=== PATIENT | male | born 1960 | race Caucasian/White ===

== ENCOUNTER → 2018-03-31 14:33 | Outpatient (CLI) | payer OTHER, SELFPAY ==
[2018-03-31 15:53] LABS: Anion Gap 8 (5-15); BUN 13 mg/dL (7-18); BUN/Creat Ratio 13.9 RATIO (10-20); Calcium,Total 9.3 mg/dL (8.5-10.1); Chloride 103 mmol/L (98-107); Cholesterol 244 mg/dL (200); Creatinine, Serum 0.94 mg/dL (0.70-1.30); EST Glomerular Filtration Rate 88 mL/min (>60); Est Glom Filt Rate - Afr Amer 106 mL/min (>60); Glucose 81 mg/dL (74-106); High Density Lipoprotein 83 mg/dL; PSA,Total - Annual Screen 0.97 ng/mL (0.00-4.00); Potassium 3.5 mmol/L (3.5-5.1); Sodium Level 140 mmol/L (136-145); Triglycerides 65 mg/dL; Very Low Density Lipoprotein 13 mg/dL (5-40)
[2018-03-31 15:57] LABS: Vitamin D,25 Hydroxy 29.5 ng/mL (29.95-100.01)
== END ==
PROVIDERS: Family Provider Family Medicine; PCP Family Medicine; Visit Provider Family Medicine
DX: Z00.00 Encounter for general adult medical examination without abnormal findings (principal)
CPT/HCPCS: 36415; 80048; 80061; 82306; 84153; G0103

== ENCOUNTER 2022-03-05 16:43 | Emergency (ER) | payer BC, SELFPAY ==
[2022-03-05 16:44] VITALS: BP 136/96; PULSE 73; RESP 15; TEMP 36.7; O2SAT 97; BMI 25.0
--- NOTE | 2022-03-05 17:17 | EX.ED.GENINJ ---
HPI History of Present Illness Chief Complaint: Laceration Informant: patient, spouse/S.O. and family Narrative Narrative: 61-year-old male was working on a crossbow when he sustained a laceration from the trigger to his left thumb. He notes 2 lacerations to his dorsum of the left thumb. Denies any other injuries. Unknown last tetanus. Tetanus Immunization: Unknown PFSH PFSH Home Medications cephalexin 500 mg capsule 500 mg PO TID 7 days #21 caps 03/05/22 [Rx Last Taken Unknown] Allergy/AdvReac Type Severity Reaction Status Date / Time No Known Allergies Allergy Verified 03/05/22 16:44 Social History (Updated 03/05/22 @ 17:[address] Dano Lay, DO) Smoking Status: Never smoker substance use type: does not use ROS ROS ED Constitutional Constitutional ED: Denies chills or weight loss Eyes Eyes: Denies change in vision or diplopia ENT ENT ED: Denies ear pain, rhinorrhea or sore throat Cardiovascular Cardiovascular: Denies chest pain, orthopnea, palpitations or racing heartbeat Respiratory/Chest Respiratory/Chest: Denies cough, dyspnea or orthopnea Gastrointestinal Gastrointestinal: Denies abdominal pain, diarrhea, nausea or vomiting Genitourinary Genitourinary ED: Denies dysuria, hematuria or urinary frequency Musculoskeletal Musculoskeletal: Denies arthralgias or myalgias Integumentary Reports other Details: See HPI ; Denies abscess or rash Neurologic Neurologic: Denies headache(s) or weakness Psychiatric Psychiatric: Denies anxiety, depression, suicidal ideation or suicidal thoughts Endocrine Endocrinology: Denies polydipsia, polyphagia or polyuria Allergic/Immunologic Allergic/Immunologic ED: Denies mouth swelling, tongue swelling or urticaria EXAM Physical Exam Const Vital Signs: 03/05/22 16:44 Temperature 98.0 F Temperature Source Temporal Pulse Rate 73 Respiratory Rate 15 Blood Pressure 136/96 H Blood Pressure Mean 109 Pulse Ox 97 Oxygen Delivery Method Room Air Positive well nourished and well developed General Appearance ED: well developed HEENT Reports normocephalic, head/scalp atraumatic and moist mucous membranes Eyes PERRL and EOMs intact bilaterally Neck no lymphadenopathy, supple and no JVD Resp normal respiratory effort and clear to auscultation bilaterally Cardio regular rate, regular rhythm and no murmurs GI normal to inspection, nondistended, normoactive bowel sounds and non-tender Palpation: soft Back/Spine no CVA tenderness and normal ROM Extremity Extremity Narrative: There are 2 lacerations to the dorsum of the left thumb. First over the PIP joint is a 3 to 4 cm curvilinear laceration that is full-thickness. It its wound edges are well approximated. The second laceration is proximal near the MCP joint. There is visualization of the tendon but no obvious tendon injury when I take it through its range of motion. Tendon strength appears normal. This laceration measures approximately 2 cm in a elliptical fashion. All bleeding controlled General Extremety ED: Negative for edema General Extremity: Negative for edema Neuro oriented x3 and CN's II-XII intact bilaterally Sensorium / Orientation: alert Motor Exam: strength 5/5 throughout Psych mental status grossly normal Mood & Affect: Negative for depressed or tearful Skin no rashes or lesions noted and no wounds MDM MDM MDM Narrative Medical decision making narrative: The wounds were locally anesthetized using 1% lidocaine washed with Shur-Clens explored and irrigated with sterile saline and then closed using a total of 6 simple interrupted 4-0 Ethilon sutures. He is given his first dose of Keflex here and a prescription for same because of the visualization of the tendon. The patient will follow-up with primary care in 10 to days for suture removal. His tetanus was updated. Discharge Plan Triage Chief Complaint: Laceration ED Provider: Dano Lay Dx/Rx/DC Orders Clinical Impression: Laceration of left thumb Instructions: ED Laceration, Hand: All Closures Prescriptions: New cephalexin 500 mg capsule 500 mg PO TID 7 Days Qty: 21 0RF Primary Care Provider: Jelani Doan Referrals: Jelani Doan MD [Primary Care Provider] - 10 Day for suture removal Disposition Disposition: Home, Self Care
[2022-03-05] MEDS: Lidocaine 1% (20 ml mdv) 20 ML Vial INFILT (17:18)
[2022-03-05] MEDS: Diphth,Pertuss(Acell),Tet Vac 0.5 ML Vial IM (17:18)
[2022-03-05] MEDS: Cephalexin 250 MG Capsule 500 MG PO (17:27)
== END 2022-03-05 17:37 | disposition home or self-care (01) ==
LOC: ED 17:36
PROVIDERS: Emergency Provider Emergency Medicine; PCP Family Medicine; Visit Provider Emergency Medicine
DX: S61.012A Laceration without foreign body of left thumb without damage to nail, initial encounter (principal); W26.8XXA Contact with other sharp object(s), not elsewhere classified, initial encounter
CPT/HCPCS: 12002; 90715; 99284

== ENCOUNTER → 2022-03-30 | Outpatient (CLI) | payer BC, SELFPAY ==
[2022-03-30 09:58] LABS: Absolute Lymphocyte Count 1.46 X10^3/uL (0.83-4.51); Absolute Neutrophil Count 4.4 X10^3/uL (2.0-7.7); Basophil# 0.02 X10^3/uL; Basophil% 0.3 % (0-1); Eosinophils% 1.5 % (0-5); Hematocrit 48.3 % (40-54); Hemoglobin 16.1 g/dL (13.0-16.5); Lymphocyte # 1.46 X10^3/ul (0.83-4.51); Lymphocyte % 21.7 % (19-41); Mean Corp Hgb Conc 33.3 g/dL (32-36); Mean Corpuscular Hgb 31.4 pg (27.0-32.0); Mean Corpuscular Volume 94.2 fL (80-94); Mean Platelet Vol. 8.8 fl (6.2-12.0); Monocyte# 0.76 X10^3/uL; Monocyte% 11.3 % (0-10); NRBC Flagged by Analyzer 0 % (0-5); Neutrophil # 4.39 X10^3/uL (2.7-7.7); Neutrophil % 65.1 % (47-70); Platelet Count 260 K/mm3 (150-450); RBC Distribution Width CV 13.1 % (11.6-14.6); RBC Distribution Width SD 45.3 fl (35.1-43.9); Red Blood Count 5.13 M/mm3 (4.6-6.2); White Blood Count 6.7 K/mm3 (4.4-11.0)
[2022-03-30 10:39] LABS: Anion Gap 5 (5-15); BUN 19 mg/dL (7-18); BUN/Creat Ratio 20.4 RATIO (10-20); Calcium,Total 9.6 mg/dL (8.5-10.1); Chloride 106 mmol/L (98-107); Cholesterol 309 mg/dL (200); Creatinine, Serum 0.93 mg/dL (0.70-1.30); EST Glomerular Filtration Rate 87 mL/min (>60); Est Glom Filt Rate - Afr Amer 106 mL/min (>60); Glucose 100 mg/dL (74-106); High Density Lipoprotein 82 mg/dL; Potassium 4.4 mmol/L (3.5-5.1); Sodium Level 141 mmol/L (136-145); Triglycerides 52 mg/dL; Troponin-I HS 10 pg/mL (3.0-78.0); Very Low Density Lipoprotein 10 mg/dL (5-40)
== END | disposition home or self-care (01) ==
LOC: MTLAB 09:02
PROVIDERS: PCP Family Medicine; Referring Provider Family Medicine; Visit Provider Family Medicine
DX: R07.9 Chest pain, unspecified (principal)
CPT/HCPCS: 36415; 80048; 80061; 84484; 85025

== ENCOUNTER → 2022-04-10 | Outpatient (CLI) | payer BC, SELFPAY ==
--- NOTE | 2022-04-10 18:43 | STRESSREP ---
Stress Test Report Exercise myocardial perfusion stress test. 61-year-old man with a history of chest pain. Resting EKG demonstrates normal sinus rhythm with a rate of 58 bpm normal intervals are noted resting blood pressure is 116/80 mmHg. J-point elevation is present. The patient exercised according to the regular Pelon protocol for a total duration of 9 minutes and 6 seconds completing 6 seconds into stage IV of the Pelon protocol the maximum heart rate attained was 148 bpm which was 93% of max impacted heart rate the maximum workload was 10.4 metabolic equivalents. At rest there were no ST or T wave changes noted to suggest ischemia and at peak exercise upsloping ST changes were noted with did not meet the criteria for ischemia. No clinical angina was noted the test was terminated due to the target heart rate being achieved. The resting blood pressure was 116/80 with a peak blood pressure 186/80 mmHg which was a good blood pressure response to exercise with a rate-pressure product of 27,156. Myocardial perfusion protocol. 14.1 mCi of technetium 99m sestamibi was injected at rest. The patient exercised according to regular Pelon protocol for total duration of 9 minutes and at peak exercise 44.3 mCi of technetium 99m sestamibi was injected stress images were obtained stress and rest images were reconstructed and compared in the short axis vertical long and horizontal long axis. Gated images were also obtained. Perfusion SPECT analysis: Review of the stress images demonstrate normal uptake of tracer noted in all areas of the myocardium. The resting images similar demonstrate normal uptake of tracer noted in all areas of the myocardium. No areas of reversibility are noted suggest ischemia and no previous infarct is noted. Gated SPECT analysis: The gated ejection fraction is 67%. Conclusion: Normal exercise myocardial perfusion stress test at a high workload. Preserved ejection fraction.
== END | disposition home or self-care (01) ==
PROVIDERS: PCP Family Medicine; Referring Provider Family Medicine; Visit Provider Family Medicine
DX: R07.9 Chest pain, unspecified (principal)
CPT/HCPCS: 78452; 93017; A9500

== ENCOUNTER → 2023-01-04 | Outpatient (CLI) | payer BC, SELFPAY ==
[2023-01-04 10:36] LABS: AST(SGOT) 34 U/L (15-37); Alanine Aminotransfer ALT/SGPT 40 U/L (16-61); Albumin, Serum 3.8 g/dL (3.2-5.0); Alkaline Phosphatase 42 U/L (45-117); Anion Gap 4 (5-15); BUN 15 mg/dL (7-18); BUN/Creat Ratio 17.7 RATIO (10-20); Calcium,Total 9.2 mg/dL (8.5-10.1); Chloride 105 mmol/L (98-107); Creatinine, Serum 0.85 mg/dL (0.70-1.30); EST Glomerular Filtration Rate 97 mL/min (>60); Est Glom Filt Rate - Afr Amer 117 mL/min (>60); Globulin 3.8 g/dL (2.2-4.2); Glucose 96 mg/dL (74-106); PSA,Total - Annual Screen 1.37 ng/mL (0.00-4.00); Potassium 4.3 mmol/L (3.5-5.1); Protein, Total 7.6 g/dL (6.4-8.2); Sodium Level 139 mmol/L (136-145)
== END | disposition home or self-care (01) ==
LOC: MFPLAB 08:19
PROVIDERS: PCP Family Medicine; Visit Provider Family Medicine
DX: Z00.00 Encounter for general adult medical examination without abnormal findings (principal); Z12.5 Encounter for screening for malignant neoplasm of prostate; E78.00 Pure hypercholesterolemia, unspecified
CPT/HCPCS: 36415; 80053; 84153; G0103

== ENCOUNTER → 2023-07-12 | Outpatient (CLI) | payer BC, SELFPAY ==
[2023-07-12 10:31] LABS: ALB/GLOB Ratio 1.3 RATIO (0.9-2.4); AST(SGOT) 26 U/L (15-37); Alanine Aminotransfer ALT/SGPT 37 U/L (16-61); Alkaline Phosphatase 41 U/L (45-117); Anion Gap 5 (5-15); BUN 25 mg/dL (7-18); BUN/Creat Ratio 27.5 RATIO (10-20); Calcium,Total 9.5 mg/dL (8.5-10.1); Chloride 106 mmol/L (98-107); Cholesterol 183 mg/dL (200); Creatinine, Serum 0.91 mg/dL (0.70-1.30); EST Glomerular Filtration Rate 89 mL/min (>60); Est Glom Filt Rate - Afr Amer 108 mL/min (>60); Globulin 3.1 g/dL (2.2-4.2); Glucose 92 mg/dL (74-106); High Density Lipoprotein 72 mg/dL; Potassium 4.5 mmol/L (3.5-5.1); Protein, Total 7.1 g/dL (6.4-8.2); Sodium Level 141 mmol/L (136-145); Triglycerides 47 mg/dL; Very Low Density Lipoprotein 9 mg/dL (5-40)
== END | disposition home or self-care (01) ==
LOC: MFPLAB 08:24
PROVIDERS: PCP Family Medicine; Visit Provider Family Medicine
DX: E78.5 Hyperlipidemia, unspecified (principal)
CPT/HCPCS: 36415; 80053; 80061

== ENCOUNTER → 2024-03-27 | Outpatient (CLI) | payer BC, SELFPAY ==
[2024-03-27 11:42] LABS: ALB/GLOB Ratio 1.1 RATIO (0.9-2.4); AST(SGOT) 23 U/L (15-37); Alanine Aminotransfer ALT/SGPT 35 U/L (16-61); Albumin, Serum 3.9 g/dL (3.2-5.0); Alkaline Phosphatase 43 U/L (45-117); Anion Gap 4 (5-15); BUN 15 mg/dL (7-18); BUN/Creat Ratio 17.3 RATIO (10-20); Calcium,Total 9.5 mg/dL (8.5-10.1); Chloride 107 mmol/L (98-107); Cholesterol 161 mg/dL (200); Creatinine, Serum 0.86 mg/dL (0.70-1.30); EST Glomerular Filtration Rate 94 mL/min (>60); Est Glom Filt Rate - Afr Amer 114 mL/min (>60); Globulin 3.4 g/dL (2.2-4.2); Glucose 99 mg/dL (74-106); High Density Lipoprotein 75 mg/dL; PSA,Total - Annual Screen 1.48 ng/mL (0.00-4.00); Potassium 4.4 mmol/L (3.5-5.1); Protein, Total 7.3 g/dL (6.4-8.2); Sodium Level 140 mmol/L (136-145); Triglycerides 58 mg/dL; Very Low Density Lipoprotein 12 mg/dL (5-40)
== END | disposition home or self-care (01) ==
LOC: MFPLAB 09:17
PROVIDERS: PCP Family Medicine; Visit Provider Family Medicine
DX: Z12.5 Encounter for screening for malignant neoplasm of prostate (principal); E78.5 Hyperlipidemia, unspecified
CPT/HCPCS: 36415; 80053; 80061; 84153; G0103

== ENCOUNTER → 2025-03-22 | Outpatient (CLI) | payer BC, SELFPAY | END | disposition home or self-care (01) | LOC: MFPLAB 14:41 → LABSPEC 14:41 | PROVIDERS: PCP Family Medicine; Visit Provider Family Medicine | DX: L02.212 Cutaneous abscess of back [any part, except buttock and flank] (principal) | CPT/HCPCS: 87070; 87205 ==

== ENCOUNTER 2025-04-11 14:47 | Emergency (ER) | payer BC, SELFPAY ==
[2025-04-11 14:48] VITALS: BP 124/69; PULSE 89; RESP 16; TEMP 36.6; O2SAT 100; BMI 26.7
--- NOTE | 2025-04-11 15:13 | EX.ED.DYSGE1 ---
HPI History of Present Illness Chief Complaint: Rash Detail of Chief Complaint: Rash first noted Saturday. Informant: patient Onset/Context/Timing Onset: Days Context: Sudden Onset Timing: Continuous Quality: Erythematous raised nonpruritic generalized rash Location: Generalized Current Severity: The entire body Worsened by: On known Relieved by: Nothing Associated Symptoms Associated Symptoms: Temperature 100.1 at home. Narrative Narrative: Patient is a 64-year-old male. He had not I&D, stab incision, of a abscess left lower back near the midline. This was performed by Dr. Jelani Doan. Fluid was sent for analysis. Gram stain revealed gram-positive cocci and 2+ white cells. There was no growth. Patient is presently on cephalexin and trimethoprim/sulfamethoxazole. He has not had any joint pain or joint swelling. He has had no exfoliation of skin from the palms of his hand or soles of his feet. He denies headache. He denies swelling of his lips tongue question throat. There is been no change in his voice. He has no difficulty swallowing. He has no respiratory symptoms. He has no GI symptoms. Question of some lightheadedness prior to arrival. The rash has progressively gotten worse. He took 2 Benadryl capsules 1 hour prior to presentation because his doctors stated he should take it based on how the rash looks. He had no itching prior to taking the Benadryl. Prior similar symptoms: No Recent Illness/Hospitalization: Yes [facility] Medical History Abscess of back Hyperlipidemia Home Medications ?Medication ?Instructions ?Recorded ?Last Taken ?Type cephalexin 500 mg capsule 500 mg PO TID 7 days #21 caps 03/05/22 Unknown Rx rosuvastatin 20 mg tablet 20 mg PO QHS 04/11/25 Unknown History Allergy/AdvReac Type Severity Reaction Status Date / Time sulfamethoxazole (From Allergy Intermediate Fever and Verified 04/11/25 17:22 Bactrim) skin rash trimethoprim (From Bactrim) Allergy Intermediate Fever and Verified 04/11/25 17:22 skin rash Social History (Updated 04/11/25 @ 15:[address] Jose De Jesus Arenas MD) household members: spouse Smoking Status: Former smoker substance use type: does not use ROS ROS ED Constitutional Constitutional ED: Reports chills and fever(s); Denies subjective or sweats Eyes Eyes: Denies blurry vision, change in vision or diplopia ENT ENT ED: Reports other Details: Further detailed HPI narrative ; Denies ear pain, rhinorrhea or sore throat Cardiovascular Cardiovascular: Reports chest pain and palpitations Respiratory/Chest Respiratory/Chest: Reports cough, dyspnea and dyspnea on exertion Gastrointestinal Gastrointestinal: Reports abdominal pain; Denies diarrhea or vomiting Genitourinary Genitourinary ED: Denies dysuria, hematuria or urinary frequency Musculoskeletal Musculoskeletal: Denies arthralgias, back pain or myalgias Integumentary Reports rash Neurologic Neurologic: Denies paresthesias or weakness Psychiatric Psychiatric: Denies anxiety or depression Endocrine Endocrinology: Denies cold intolerance or heat intolerance Hematologic/Lymphatic Hematologic/Lymphatic: Reports systems reviewed and no addt'l complaints, except as documented EXAM Physical Exam Const Vital Signs: 04/11/25 14:48 Temperature 98 F Temperature Source Oral Pulse Rate 89 Respiratory Rate 16 Blood Pressure 124/69 H Blood Pressure Mean 87 Pulse Ox 100 Oxygen Delivery Method Room Air Positive well nourished and well developed General Appearance ED: well developed and NAD; Negative for pallor HEENT Reports dry mucous membranes HEENT Narrative: Head is atraumatic and normocephalic. Ears normal. Nares patent. Posterior pharynx is unremarkable. There is no mucosal lesions noted. Mouth ED: Yes dry mucous membranes Mouth: dry mucous membranes Eyes PERRL and EOMs intact bilaterally General Eye ED: Negative for pale conjunctiva or scleral icterus Neck no lymphadenopathy, supple and no JVD Chest Wall Chest Narrative: Patient has blanching slightly raised erythematous rash with areas of confluence he. There is other areas that are macular and specifically distal left and right leg. Otherwise the rash is essentially confluence. Resp normal respiratory effort and clear to auscultation bilaterally Cardio regular rate, regular rhythm, S1 normal heart sound, S2 normal heart sound and no murmurs GI normal to inspection, nondistended, normoactive bowel sounds, non-tender, non-distended and no masses; Negative for hepatosplenomegaly GI Narrative: There is no inguinal lymphadenopathy. Back/Spine Back/Spine Narrative: Band-Aid where the stab incision was made was reviewed. There may be some slight drainage. There is no fluctuance. There is no induration. Extremity Negative for normal to inspection General Extremety ED: Negative for edema or tenderness General Extremity: Negative for edema Neuro oriented x3 and CN's II-XII intact bilaterally Sensorium / Orientation: alert Psych mental status grossly normal Skin No no wounds and skin turgor normal Skin Narrative: Erythematous blanching rash from patient's head to his ankles. General Skin Exam: Negative for jaundice or pallor MDM MDM MDM Narrative Medical decision making narrative: This possibly could represent a reaction to the cephalexin and trimethoprim/sulfamethoxazole the patient is still taking. This could represent a staphylococcal infection since the Gram stain revealed positive cocci. They are not positive organisms in chains or pairs. This would be more likely a strep infection. This possibly could be early presentation for staph scalded skin syndrome. I do not believe this represents early toxic shock syndrome due to gram-positive infection. Since he has no joint swelling or swelling of his extremities I do not believe this to be serum sickness either. Because he reported temperature 100.1 prior to arrival CBC was obtained assess white count differential as well as inflammatory markers. Also to determine if he has eosinophilia which would be more likely a allergic reaction. Will have nurse administer IV Pepcid to see if this helps his rash. This would increase likelihood of this being allergic reaction versus infectious. History & Record Review Additional record(s) reviewed:: Prior labs Lab Data Attestation: I reviewed the patient's lab results. Lab results narrative: Patient is neutropenic. Patient has eosinophilia proximal 11%. H&H is normal. Platelet count is normal. Competence of metabolic panel is remarkable for a creatinine of 1.32. BUN is 16. C-reactive protein is elevated 22.7. ESR was normal. Lactate was normal. Labs: Laboratory Results - last 24 hr 04/11/25 15:30 WBC 3.9 L RBC 4.81 Hgb 14.3 Hct 43.4 MCV 90.2 MCH 29.7 MCHC 32.9 RDW Std Deviation 44.5 H RDW Coeff of Shefali 13.4 Plt Count 198 MPV 8.5 Immature Gran % (Auto) 0.800 Neut % (Auto) 63.1 Lymph % (Auto) 14.2 L [place] % (Auto) 10.8 H Eos % (Auto) 10.8 H Baso % (Auto) 0.3 Absolute Neuts (auto) 2.5 Absolute Lymphs (auto) 0.55 L Nucleated RBC % 0 ESR 9 Sodium 132 L Potassium 4.5 Chloride 95 L Carbon Dioxide 24.5 Anion Gap 12 BUN 16 Creatinine 1.32 H Estim Creat Clear Calc 64.87 Est GFR (MDRD) Non-Af 60 BUN/Creatinine Ratio 11.7 Glucose 103 H Lactic Acid < 1.0 Calcium 9.4 Total Bilirubin 0.25 AST 58 H ALT 63 H Alkaline Phosphatase 47 C-React Prot Ext Range 22.70 H Total Protein 7.3 Albumin 4.3 Globulin 3.0 Albumin/Globulin Ratio 1.4 Radiography Chest X-Ray - ED: Read by ED Physician (Three-view x-ray of the elbow was obtained because of concern of retained distal portion of the Angiocath. There is evidence of the distal portion of the Angiocath in the soft tissue. It is approximately 4 to 5 mm x 1 mm. There is also edema due to infiltration of fluid.) Diagnostic Testing: Clinical Impression(s) from Imaging Studies Elbow X-Ray 04/11/25 15:55 IMPRESSION: 8 x 3 mm radiodensity within the deep antecubital fossa soft tissue and 5 x 1 mm radiodensity within the superficial antecubital fossa soft tissue may reflect retained foreign bodies. Moderate soft tissue edema. Reading Location: [facility] Management Discussion w/another healthcare provider: PCP (Spoke to Dr. Guillen on-call for Dr. Jelani Doan. Plan is discontinue antibiotics. Call the office for follow-up this week.) Discharge Plan Triage Chief Complaint: Rash ED Provider: Jose De Jesus Arenas Dx/Rx/DC Orders Clinical Impression: Adverse reaction to sulfonamide antibiotic, Neutropenia, Allergic eosinophilia, Erythematous rash, Foreign body (FB) in soft tissue Instructions: ED Drug Reaction, Other, ED Foreign Body Soft Tissue Prescriptions: No Action cephalexin 500 mg capsule 500 mg PO TID 7 Days Qty: 21 0RF sulfamethoxazole-trimethoprim 800-160 mg tablet 2 tab PO BID rosuvastatin 20 mg tablet 20 mg PO QHS Primary Care Provider: Jelani Doan Referrals: Jelani Doan MD [Primary Care Provider, Family Practice] - As soon as possible Activity Restrictions/Additional Instructions: 1. Stop taking cephalexin and sulfamethoxazole-trimethoprim. 2. The foreign body was not removed. Since its inert will follow and observe. If there is evidence of infection it will need to be removed at that time. Print Language: Surinamese Disposition Disposition: Home, Self Care
--- NOTE | 2025-04-11 15:36 | ED.RN ---
MARGARETH Navarro requesting charge nurse. Ramon notified Charge nurse if off the floor at this time. Ramon asks this RN if she could help him in room12. Ramon states I was attempting an IV, I had to pull the line because it had infiltrated. When I looked at the catheter, I noticed it was not intact... If you could come look at it, and let me know what you see. RN states I need to take this phone call but I will be there when I am done. RN enters patients room and to assess IV catheter. Rn noticed the catheter is not intact. RN states I will step out of the room and talk with Dr. Arenas. Dr. Arenas notified of situation as explained above. Dr. Arenas states he will probably have to be transferred. Dr. Arenas was shown IV catheter that was pulled by MARGARETH Navarro and a normal [address] Arenas states about 5-6mm is missing from the catheter. We will order an X-ray. MARGARETH Navarro notified of these new orders. Charge nurse notified of incident.
[2025-04-11] MEDS: Famotidine 200 MG/20 ML MDV 20 MG in 0.9% Normal Saline (Pres. free 8 ML 300 MG IV (15:45)
[2025-04-11 15:53] LABS: Hematocrit 43.4 % (40-54); Hemoglobin 14.3 g/dL (13.0-16.5); Immature Granulocytes Count 0.030 X10^3/uL (0.0-0.0); Mean Corp Hgb Conc 32.9 g/dL (32-36); Mean Corpuscular Volume 90.2 fL (80-94); Mean Platelet Vol. 8.5 fl (6.2-12.0); NRBC Flagged by Analyzer 0 % (0-5); POSITIVE DIFFERENTIAL YES; Platelet Count 198 K/mm3 (150-450); RBC Distribution Width CV 13.4 % (11.6-14.6); RBC Distribution Width SD 44.5 fl (35.1-43.9); Red Blood Count 4.81 M/mm3 (4.6-6.2); White Blood Count 3.9 K/mm3 (4.4-11.0)
--- NOTE | 2025-04-11 15:55 | RAD_ITS ---
PROCEDURE: ELBOW MIN 3 VIEWS 04/11/2025 REASON FOR EXAM: INJURY/PAIN TECHNIQUE: Procedure Code: RADEL Modality: DX Procedure: ELBOW MIN 3 VIEWS COMPARISON: None FINDINGS: No acute fracture or dislocations. No significant degenerative changes. No large joint effusion. 8 x 3 mm radiodensity within the antecubital fossa within deep tissue and 5 x 1 mm radiodensity within the superficial tissue may reflect retained foreign bodies. Moderate soft tissue edema. RAD/Elbow min 3 Views IMPRESSION: 8 x 3 mm radiodensity within the deep antecubital fossa soft tissue and 5 x 1 m m radiodensity within the superficial antecubital fossa soft tissue may reflect retained foreign bodies. Moderate soft tissue edema. Reading Location: [id number]
[2025-04-11 16:29] LABS: AST(SGOT) 58 U/L (<=37); Alanine Aminotransfer ALT/SGPT 63 U/L (<=46); Albumin, Serum 4.3 g/dL (3.4-4.8); Alkaline Phosphatase 47 U/L (40-129); Anion Gap 12 (5-15); BUN 16 mg/dL (4-19); BUN/Creat Ratio 11.7 RATIO (10-20); CRP 22.70 mg/L (0.0-3.0); Calcium,Total 9.4 mg/dL (7.6-11.0); Carbon Dioxide 24.5 mmol/L (21.0-32.0); Chloride 95 mmol/L (98-108); Estimated Creatinine Clearance 64.87 ml/min (50-250); Globulin 3.0 g/dL (2.2-4.2); Glucose 103 mg/dL (70-99); Potassium 4.5 mmol/L (3.3-5.1)
--- NOTE | 2025-04-11 16:59 | ED.RN ---
Attempted to start IV in Lt AC when vein blew. As this nurse removed the angiocath felt a small pop from cath. On inspection the cath appeared shorter than typical. This nurse set aside the angiocath and stepped out of room. Dr Arenas was not at his desk so report to acting charge nurse. proceeded to start new IV in Rt AC without difficulty. Charge nurse had reported issue to Dr Arenas who ordered Xray of Lt elbow.
[2025-04-11 17:49] VITALS: BP 123/66; PULSE 88; RESP 17; TEMP 37.1; O2SAT 98
== END 2025-04-11 17:50 | disposition home or self-care (01) ==
PROVIDERS: Emergency Provider Emergency Medicine; PCP Family Medicine; Visit Provider Emergency Medicine
DX: R21 Rash and other nonspecific skin eruption (principal); T36.95XA Adverse effect of unspecified systemic antibiotic, initial encounter; D72.10 Eosinophilia, unspecified; E78.5 Hyperlipidemia, unspecified; Z87.891 Personal history of nicotine dependence; Z79.899 Other long term (current) drug therapy
CPT/HCPCS: 73080; 80053; 83605; 85025; 85652; 86140; 96374; 99283; A4216

== ENCOUNTER → 2025-05-03 | Outpatient (CLI) | payer BC, SELFPAY | END | disposition home or self-care (01) | LOC: LABSPEC 10:13 | PROVIDERS: PCP Family Medicine; Referring Provider Surgery; Visit Provider Surgery | DX: L02.212 Cutaneous abscess of back [any part, except buttock and flank] (principal) | CPT/HCPCS: 87070; 87075; 87077; 87186; 87205 ==